=== PATIENT | female | born 1990 | race Two or more races ===

== ENCOUNTER 2021-10-08 04:03 | Day surgery (SDC) | payer OTHER ==
[2021-10-02 10:21] VITALS: BMI 32.9
[2021-10-08] MEDS ORDERED: LIDOCAINE HCL 1%, 10 MG/ML (20ML VIAL) ONE (08:27)
[2021-10-08] MEDS ORDERED: BUPIVACAINE HCL/PF 0.25% (2.5MG/ML) 10 ML VIAL ONE (08:27)
[2021-10-08] MEDS ORDERED: PROPOFOL 20 ML ONE ×3 (08:29)
[2021-10-08] MEDS ORDERED: MIDAZOLAM HCL 2 MG/2 ML SINGLE DOSE VIAL ONE (08:29)
[2021-10-08] MEDS ORDERED: LIDOCAINE HCL/PF 2% SDV 5ML VIAL ONE (08:30)
[2021-10-08] MEDS ORDERED: ceFAZolin SODIUM 1 GM VIAL ONE (09:09)
[2021-10-08] MEDS ORDERED: ceFAZolin SODIUM 1 GM VIAL IVPB ONE (09:10)
[2021-10-08] MEDS ORDERED: DEXAMETHASONE SOD PHOSPHATE 4 MG/1 ML VIAL ONE (09:12)
[2021-10-08] MEDS ORDERED: LIDOCAINE HCL 1%, 10 MG/ML (20ML VIAL) INF ONE ×2 (09:29)
[2021-10-08] MEDS ORDERED: BUPIVACAINE HCL/PF 0.25% (2.5MG/ML) 10 ML VIAL IJ ONE ×2 (09:31)
[2021-10-08] MEDS ORDERED: oxyCODONE HCL 5 MG TABLET PO PRN (09:54)
[2021-10-08] MEDS ORDERED: ONDANSETRON 4 MG/2 ML VIAL IVPUSH PRN (09:54)
[2021-10-08] MEDS ORDERED: FENTANYL CITRATE/PF 50 MCG/ML VIAL ONE ×4 (09:56→10:29)
[2021-10-08] MEDS ORDERED: LACTATED RINGERS SOLUTION 1,000 ML IV SCH (10:00)
[2021-10-08] MEDS ORDERED: KETOROLAC TROMETHAMINE 30 MG/1 ML VIAL ONE (10:34)
[2021-10-08] MEDS ORDERED: ACETAMINOPHEN INJECTION 100 ML IVPB ONE (10:36)
[2021-10-08] MEDS ORDERED: ACETAMINOPHEN 1000 MG/100 ML BAG IVPB ONE (10:40)
[2021-10-08 13:06] VITALS: BP 119/65; PULSE 63; TEMP 98
== END 2021-10-08 13:00 | disposition home or self-care (01) ==
LOC: JASU-SURG 04:03
PROVIDERS: ATTEND Surgery
PROC: 0JB60ZZ Excision of Chest Subcutaneous Tissue and Fascia, Open Approach (ICD-10-PCS; principal; 2021-10-08 09:00)
DX: D17.1 Benign lipomatous neoplasm of skin and subcutaneous tissue of trunk (principal)
CPT/HCPCS: 81025; 88304-TC; 94760

== ENCOUNTER 2022-02-28 09:18 | Emergency (ER) | payer OTHER ==
[2022-02-28 09:31] VITALS: BP 119/62; PULSE 80; RESP 18; TEMP 98.2; BMI 31.4
[2022-02-28] MEDS ORDERED: SODIUM CHLORIDE 1,000 ML IV STA (10:34)
[2022-02-28 11:46] LABS: BASO % 0.3 % (0-2.0); EOS % 0.6 % (0-4.5); HEMATOCRIT 25.3 % (32.4-45.2); HEMOGLOBIN 7.4 GM/dL (10.7-15.3); MCHC 29.3 g/dl (32.0-36.0); MEAN CELL VOLUME 60.5 fl (80-96); MEAN PLT VOLUME 10.6 fl (7.5-11.1); MONO % 4.5 % (3.8-10.2); NEUT % 69.6 % (42.8-82.8); PLATELET COUNT 298 10^3/uL (134-434); RBC 4.18 M/mm3 (3.60-5.2); RDW 18.6 % (11.6-15.6); WHITE BLOOD COUNT 7.9 K/mm3 (4.0-10.0)
[2022-02-28 11:53] LABS: INR 1.18 (0.83-1.09); PROTHROMBIN TIME (PATIENT) 13.6 SEC (9.7-13.0)
[2022-02-28 11:54] LABS: MCH 17.7 pg (25.7-33.7)
[2022-02-28 11:56] LABS: ACTIVATED PTT 29.6 SECONDS (25.2-36.5)
[2022-02-28 12:10] LABS: EPI CELLS >36 /uL (0-25.1); HYALINE CASTS 1 /uL (0-3.1); URINE APPEARANCE CLEAR; URINE BACTERIA 2007 /uL (0-1359); URINE BILIRUBIN NEGATIVE (NEGATIVE); URINE COLOR YELLOW; URINE GLUCOSE (UA) NEGATIVE (NEGATIVE); URINE KETONE NEGATIVE (NEGATIVE); URINE LEUK ESTERASE 2+ (NEGATIVE); URINE NITRITE NEGATIVE (NEGATIVE); URINE PROTEIN NEGATIVE (NEGATIVE); URINE RBC 10 /uL (0-23.9); URINE WBC 62 /uL (0-25.8)
[2022-02-28 13:36] LABS: ALBUMIN 3.2 g/dl (3.4-5.0); CALCIUM 8.7 mg/dL (8.5-10.1)
[2022-02-28 13:37] LABS: BLOOD UREA NITROGEN 8.2 mg/dL (7-18)
[2022-02-28 13:39] LABS: CREATININE 0.6 mg/dL (0.55-1.3)
[2022-02-28 13:41] LABS: ANISOCYTOSIS 3+; BILIRUBIN,TOTAL 0.2 mg/dL (0.2-1); MACROCYTOSIS 0; OVALOCYTE 2+; TEAR DROP CELLS 1+; TOT PROT 6.9 g/dl (6.4-8.2)
== END 2022-02-28 14:04 | disposition home or self-care (01) ==
LOC: JER 09:18
DX: O26.831 Pregnancy related renal disease, first trimester (principal); N20.0 Calculus of kidney; Z3A.01 Less than 8 weeks gestation of pregnancy
CPT/HCPCS: 36415; 76705-TC; 76817-TC; 80053; 81003; 83690; 84702; 84703; 85025; 85610; 85730; 86140; 87077; 87086; 99284-25